=== PATIENT | female | born 1975 | race Caucasian/White ===

== ENCOUNTER 2017-03-23 07:57 | Emergency (ER) | payer OTHER ==
[~2017-03-23] VITALS: Ht 170.2 cm; Wt 70.3 kg
[2017-03-23 08:47] LABS: ABSOLUTE LYMPHOCYTES 1.8 thou/uL (0.8-5.3); ABSOLUTE MONOCYTES 0.3 thou/uL (0.0-1.2); ABSOLUTE NEUTROPHILS 2.9 thou/uL (1.6-8.1); BASOPHILS 0.8 %; EOSINOPHILS 0.8 %; HEMATOCRIT 40.7 % (37.0-47.0); HEMOGLOBIN 13.8 gm/dL (12.0-15.0); LYMPHOCYTES 35.9 %; MCH 30.1 pg (26.0-34.0); MCV 88.4 fL (80.0-100.0); MPV 9.6 fl. (7.2-11.1); NUCLEATED RBCS 0 /100WBC; PLATELET COUNT* 226 thou/uL (150-400); POLYS 56.5 %; RDW-CV 12.8 % (10.5-14.5); WBC 5.1 thou/uL (4.0-11.0)
[2017-03-23 08:57] LABS: ANION GAP 8 mmol/L (7-16); BUN 11 mg/dL (7-18); CALCIUM 8.9 mg/dL (8.5-10.1); CHLORIDE 106 mmol/L (98-107); CO2 27 mmol/L (21-32); CREATININE 0.8 mg/dL (0.6-1.3); GLUCOSE 99 mg/dL (70-99); SODIUM 141 mmol/L (136-145)
[2017-03-23 09:02] LABS: APTT 25.3 Seconds (25.0-31.3); INR 1.1; PROTIME 10.5 Seconds (9.20-11.50)
[2017-03-23 09:18] LABS: ALBUMIN 3.7 g/dL (3.4-5.0); ALKALINE PHOSPHATASE 56 U/L (46-116); CK-MB MASS < 0.5 ng/mL (<0.5-3.6); LIPASE 296 U/L (73-393); MAGNESIUM 1.8 mg/dL (1.8-2.4); NT-PRO BRAIN NAT PEPTIDE 140 pg/mL (<300); SGOT 21 U/L (15-37); SGPT 28 U/L (30-65); TOTAL BILIRUBIN 0.4 mg/dL (<0.1-1.0); TOTAL PROTEIN 7.2 g/dL (6.4-8.2); TROPONIN-I LEVEL <0.06 ng/mL (<0.06)
[2017-03-23] MEDS ORDERED: ACIPHEX 20 MG T20 MG PO (09:50)
[2017-03-23 10:00] VITALS: BP 107/60
--- NOTE | 2017-03-23 11:29 | EKG ---
[place] [address] ELECTROCARDIOGRAM REPORT Name: ADRIANNA GALICIA Room: [facility]#: [id number] Admission: 03/23/17 Attend Phys: Discharge: 03/23/17 Date of : 79 Report #: [id number] THIS REPORT FOR: //name// [facility] ED Test Date: 2017-03-23 Test Time: 08:04:52 Pat Name: ADRIANNA GALICIA Department: Room: Gender: F Processor Inspector: ANETTE : 1975 Requested By: Fredy Lang Order Number: [id number] MD: Tong Man Measurements Intervals [place]hler Rate: 72 P: 77 OK: 136 QRS: 56 QRSD: 82 T: 40 QT: 398 QTc: 436 Interpretive Statements Sinus rhythm Probable left atrial enlargement No previous ECG available for comparison Electronically Signed On 03-23-2017 11:28:55 PUMPER GAGER by Tong Man [email or web address] <ELECTRONICALLY SIGNED> By: Tong Man MD, [facility] 03/23/17 [id number] Tong Man MD, FACC /EPI
== END 2017-03-23 10:00 | disposition home or self-care (01) ==
LOC: M.ERS 07:57
PROVIDERS: Emergency Medicine
DX: K21.9 Gastro-esophageal reflux disease without esophagitis (principal); Z90.49 Acquired absence of other specified parts of digestive tract